=== PATIENT | female | born 1965 | race Caucasian/White ===

== ENCOUNTER 2019-07-19 13:48 | Emergency (ER) | payer BC ==
[2019-07-19] MEDS ORDERED: Morphine 4 MG/ML Syringe IVPUSH ONE ×2 (13:58→16:03)
[2019-07-19] MEDS ORDERED: Ondansetron 4 MG/2 ML SDV IVPUSH PRN (13:58)
[2019-07-19] MEDS ORDERED: Sodium Chloride 0.9% 10 ML Syringe FLUSH PRN (13:58)
[2019-07-19] MEDS ORDERED: Ketorolac 30 MG/ML SDV IVPUSH ONE (14:00)
[2019-07-19] MEDS ORDERED: Sodium Chloride 0.9% 1,000 ML IV ONE (14:00)
--- NOTE | 2019-07-19 14:06 | EDM.PDOC ---
ED HPI GENERAL MEDICAL PROBLEM - General Chief Complaint: Abdominal Pain Stated Complaint: ABDOMINAL PAIN Time Seen by Provider: 07/19/19 13:51 Source of Information: Reports: Patient - History of Present Illness INITIAL COMMENTS - FREE TEXT/NARRATIVE: Trudy is a 54 y/o female who comes to the ER with RLQ abdominal pain that she reports started yesterday and has gotten worse. The pain is sharp and constant and she rates it 10/10 and worse with any movement. Denies fever. She is a bit nauseated, but has not vomited. Several soft stools today. She reports to [facility] that she had had her appendix out. Right Lower Abdomen Pain Score (Numeric/FACES): 7 - Related Data Allergies Allergy/AdvReac Type Severity Reaction Status Date / Time chlorzoxazone [From Paraflex] Allergy Other Verified 07/19/19 13:57 Home Meds: Home Meds Ciprofloxacin [Cipro] 500 mg PO BID 10 Days #20 ml 07/19/19 [Rx] Escitalopram Oxalate 20 mg PO DAILY 07/19/19 [History] Lisinopril/Hydrochlorothiazide [Lisinopril-Hctz 20-25 mg Tab] 1 each PO DAILY [History] Ondansetron [Ondansetron ODT] 4 mg PO Q6H PRN #15 tab.rapdis 07/19/19 [Rx] metroNIDAZOLE [Flagyl] 500 mg PO Q8H 10 Days #30 tab 07/19/19 [Rx] oxyCODONE HCl/Acetaminophen [Oxycodone-Acetaminophen 5-325] 1 - 2 each PO Q4HR 3 Days #30 tablet 07/19/19 [Rx] traZODone HCl [Trazodone HCl] 50 mg PO DAILY 07/19/19 [History] Past Medical History Cardiovascular History: Reports: Hypertension Other Gastrointestinal History: S/P Appendectomy 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: Other (See Below) (Ovarian Cyst; S/P Hysterectomy) Psychiatric History: Reports: Anxiety, Depression Social & Family History - Alcohol Use Alcohol Use History: Yes Review of Systems - Review of Systems Review Of Systems: See Below Constitutional: Reports: No Symptoms Eyes: Reports: No Symptoms Ears: Reports: No Symptoms Nose: Reports: No Symptoms Mouth/Throat: Reports: No Symptoms Respiratory: Reports: No Symptoms Cardiovascular: Reports: No Symptoms GI/Abdominal: Reports: Abdominal Pain, Decreased Appetite, Nausea Genitourinary: Reports: Dysuria (mild urgency last 24 hours) Musculoskeletal: Reports: No Symptoms Skin: Reports: No Symptoms Neurological: Reports: No Symptoms Psychiatric: Reports: No Symptoms ED EXAM, GENERAL - Physical Exam Exam: See Below Exam Limited By: No Limitations General Appearance: Alert, WD/WN, No Apparent Distress, Other (Adult female, lying on her side on the ER cart, obviously in pain) Ears: Hearing Grossly Normal Nose: Normal Inspection, No Blood Throat/Mouth: Normal Inspection, Normal Lips, Normal Teeth, Normal Voice Head: Atraumatic, Normocephalic Neck: Normal Inspection, Other Respiratory/Chest: Lungs Clear, Normal Breath Sounds, Chest Non-Tender Cardiovascular: Normal Peripheral Pulses, Regular Rate, Rhythm, No JVD GI/Abdominal: Normal Bowel Sounds, Soft, Tender (RLQ) (Female) Exam: Deferred Rectal (Female) Exam: Deferred Back Exam: Normal Inspection. No: CVA Tenderness (L), CVA Tenderness (R) Extremities: Normal Inspection, Non-Tender, Normal Capillary Refill Neurological: Alert, Oriented, CN II-XII Intact, Normal Cognition, No Motor/ Sensory Deficits Psychiatric: Normal Affect, Normal Mood Skin Exam: Warm, Dry, Intact, Normal Color, No Rash Lymphatic: No Adenopathy Course - Vital Signs Text/Narrative:: The patient was seen by the REPORT SPECIALIST on arrival to the ER. Labs and CT ordered. Also a liter of NS, Morphone 4mg IVP, Toradol 30mg IVP, and Zofran 4 mg IVP ordered. 1455 Patient feeling better., decreased pain. Radiologist calls REPORT SPECIALIST with CT report. 1600 Remaining labs pending yet in lab. CT sent to [facility] for surgeon to review. Patient reports that her pain is starting to return. Morphine 4mg IVP ordered. 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 Case presented to ER physician for review. Will attempt to treat patient as on outpatient with Cipro/Flagyl and pain meds and antiemetics. Patient reluctant to be admitted and wants to try outpatient treatment first. Patient was given discharge instructions and left the ER in stable condition. Last Recorded V/S: Last Vital Signs Temp 35.6 C L 07/19/19 13:49 Pulse 90 07/19/19 16:16 Resp 14 07/19/19 16:16 BP 107/67 07/19/19 16:16 Pulse Ox 95 07/19/19 16:16 - Orders/Labs/Meds Orders: Active Orders 24 hr Category Date Time Status Pulse Oximetry [RC] CONTINUOUS Care 07/19/19 13:58 Active Nothing per Oral Now Diet [DIET] Diet 07/19/19 Dinner Active Ondansetron [Zofran] Med 07/19/19 13:58 Active 4 mg IVPUSH ONETIME PRN Sodium Chloride 0.9% [Saline Flush] Med 07/19/19 13:58 Active 10 ml FLUSH ASDIRECTED PRN ED Antiemetic Medication Reflex [OM.PC] Stat Ot 07/19/19 13:58 Ordered ED GI Medications Reflex [OM.PC] Stat Ot 07/19/19 13:58 Ordered ED Pain Medications Reflex [OM.PC] Stat Ot 07/19/19 13:58 Ordered Peripheral IV Insertion Adult [OM.PC] Stat Oth 07/19/19 13:58 Ordered Saline Lock Insert [OM.PC] Stat Oth 07/19/19 13:58 Ordered Saline Lock Insert [OM.PC] Stat Ot 07/19/19 13:58 Ordered Medication Orders Ondansetron HCl (Zofran) 4 mg IVPUSH ONETIME PRN PRN Reason: Nausea/Vomiting Last Admin: 07/19/19 14:10 Dose: 4 mg Sodium Chloride (Saline Flush) 10 ml FLUSH ASDIRECTED PRN PRN Reason: Keep Vein Open Labs: Laboratory Tests 07/19/19 07/19/19 07/19/19 Range/Units 14:09 14:09 16:11 WBC 19.3 H (4.0-10.0) x10^3/uL RBC 5.61 H (4.00-5.50) x10^6/uL Hgb 16.6 H (12.0-16.0) g/dL Hct 50.4 H (33.0-47.0) % MCV 89.8 (78.0-93.0) fL MCH 29.6 (26.0-32.0) pg MCHC 32.9 (32.0-36.0) g/dL RDW Coeff of Corby 13.0 (10.0-15.0) % Plt Count 270 (130-400) x10^3/uL Neut % (Auto) 80.3 H (50.0-80.0) % Lymph % (Auto) 11.8 L (25.0-50.0) % Gillespie % (Auto) 6.8 (2.0-11.0) % Eos % (Auto) 0.9 (0.0-4.0) % Baso % (Auto) 0.2 (0.2-1.2) % Sodium 136 (136-145) mmol/L Potassium 3.6 (3.5-5.1) mmol/L Chloride 94 L (98-107) mmol/L Carbon Dioxide 25 (21-32) mmol/L Anion Gap 20.6 H (10-20) mmol/L BUN 11 (7-18) mg/dL Creatinine 1.0 (0.55-1.02) mg/dL Est Cr Clr Drug Dosing TNP Estimated GFR (MDRD) 57 Glucose 98 (74-106) mg/dL Calcium 8.9 (8.5-10.1) mg/dL Corrected Calcium 9.06 (8.5-10.1) mg/dL Total Bilirubin 0.7 (0.2-1.0) mg/dL AST 46 H (15-37) U/L ALT 78 H (14-59) U/L Alkaline Phosphatase 169 H (46-116) U/L Total Protein 8.0 (6.4-8.2) g/dL Albumin 3.8 (3.4-5.0) g/dL Globulin 4.2 Albumin/Globulin Ratio 0.90 Urine Color Yellow (YELLOW) Urine Appearance Slightly cloudy H (CLEAR) Urine pH 5.5 (5.0-8.0) Ur Specific [place] 1.015 Urine Protein Negative (NEGATIVE) mg/dL Urine Glucose (UA) Negative (NEGATIVE) mg/dL Urine Ketones Negative (NEGATIVE) mg/dL Urine Occult Blood Small H (NEGATIVE) Urine Nitrite Negative (NEGATIVE) Urine Bilirubin Negative (NEGATIVE) Urine Urobilinogen 0.2 (0.2) EU/dL Ur Leukocyte Esterase Moderate H (NEGATIVE) Urine RBC 10-20 H (NOT SEEN) /HPF Urine WBC 30-40 H (NOT SEEN) /HPF Ur Squamous Epith Cells Few H (NEGATIVE) /HPF Urine Bacteria Occasional H (NEGATIVE) /HPF Urine Mucus Few H (NEGATIVE) /LPF Meds: Medications Generic Name Dose Route Start Last Admin Trade Name Babak PRN Reason Stop Dose Admin Ondansetron HCl 4 mg 07/19/19 13:58 07/19/19 14:10 Zofran IVPUSH 4 mg ONETIME PRN Administration Nausea/Vomiting Sodium Chloride 10 ml 07/19/19 13:58 Saline Flush FLUSH ASDIRECTED PRN Keep Vein Open Discontinued Medications Generic Name Dose Route Start Last Admin Trade Name Babak PRN Reason Stop Dose Admin Sodium Chloride 1,000 mls @ 999 mls/hr 07/19/19 14:00 07/19/19 14:10 Normal Saline IV 07/19/19 15:00 999 mls/hr ONETIME ONE Administration Ketorolac Tromethamine 30 mg 07/19/19 14:00 07/19/19 14:14 Toradol IVPUSH 07/19/19 14:01 30 mg ONETIME ONE Administration Morphine Sulfate 4 mg 07/19/19 13:58 07/19/19 14:16 Morphine IVPUSH 07/19/19 13:59 4 mg ONETIME ONE Administration Morphine Sulfate 4 mg 07/19/19 16:03 07/19/19 16:12 Morphine IVPUSH 07/19/19 16:04 4 mg ONETIME ONE Administration Departure - Departure Time of Disposition: 17:13 Disposition: Home, Self-Care 01 Condition: Good Clinical Impression: Colitis - Discharge Information *PRESCRIPTION DRUG MONITORING PROGRAM REVIEWED*: No *COPY OF PRESCRIPTION DRUG MONITORING REPORT IN PATIENT BALDO: No Prescriptions: oxyCODONE HCl/Acetaminophen [Oxycodone-Acetaminophen 5-325] 1 - 2 each PO Q4HR 3 Days #30 tablet Ciprofloxacin [Cipro] 500 mg PO BID 10 Days #20 ml metroNIDAZOLE [Flagyl] 500 mg PO Q8H 10 Days #30 tab Ondansetron [Ondansetron ODT] 4 mg PO Q6H PRN #15 tab.rapdis PRN Reason: Nausea Instructions: Colitis Referrals: Beau Saldivar NP [Nurse Practitioner] - Forms: ED Department Discharge, ED Return to Work/School Form Additional Instructions: -Cipro 500mg oral twice daily x 10 days #20(Rx) -Flagyl 500mg oral three times daily x 10 days #30(Rx) -Oxycodone/APAP 5/325mg 1-2 tablets oral every 4 hours as needed for pain #30 ( RX) -Ondanestron ODT 4 mg oral every 4 hours as needed for nausea #15(Rx) -Rest -Clear liquids and advance your diet slowly -Return to the ER if you are unable to manage symptoms at home or see your PCP -Follow up with your PCP in 10 days for a recheck -No work the rest of the week. Note written. Sepsis Event Note - Evaluation Sepsis Screening Result: No Definite Risk - Focused Exam Vital Signs: Vital Signs Temp Pulse Resp BP Pulse Ox 07/19/19 16:16 90 14 107/67 95 07/19/19 13:49 35.6 C L 109 H 16 142/86 H 94 L Date Exam was Performed: 07/19/19 Time Exam was Performed: 16:57 - My Orders Last 24 Hours: My Active Orders 07/19/19 13:58 Pulse Oximetry [RC] CONTINUOUS Ondansetron [Zofran] 4 mg IVPUSH ONETIME PRN Sodium Chloride 0.9% [Saline Flush] 10 ml FLUSH ASDIRECTED PRN ED Antiemetic Medication Reflex [OM.PC] Stat ED GI Medications Reflex [OM.PC] Stat ED Pain Medications Reflex [OM.PC] Stat Peripheral IV Insertion Adult [OM.PC] Stat Saline Lock Insert [OM.PC] Stat Saline Lock Insert [OM.PC] Stat 07/19/19 Dinner Nothing per Oral Now Diet [DIET] - Assessment/Plan Last 24 Hours: My Active Orders 07/19/19 13:58 Pulse Oximetry [RC] CONTINUOUS Ondansetron [Zofran] 4 mg IVPUSH ONETIME PRN Sodium Chloride 0.9% [Saline Flush] 10 ml FLUSH ASDIRECTED PRN ED Antiemetic Medication Reflex [OM.PC] Stat ED GI Medications Reflex [OM.PC] Stat ED Pain Medications Reflex [OM.PC] Stat Peripheral IV Insertion Adult [OM.PC] Stat Saline Lock Insert [OM.PC] Stat Saline Lock Insert [OM.PC] Stat 07/19/19 Dinner Nothing per Oral Now Diet [DIET]
--- NOTE | 2019-07-19 14:58 | CT ---
[id number] CT/CT Abdomen Pelvis WO IV Exam: CT Abdomen Pelvis WO IV Clinical Data: RIGHT LOWER QUADRANT PAIN COMPARISON: NO PREVIOUS SIMILAR EXAM IS AVAILABLE FINDINGS: The exam is not normal There is abnormal thickening of the wall of the right side of the large bowel The exact surgical history is needed. The appendix is not seen IV contrast is not used There are no calculi of either kidney or ureter There is no hydronephrosis The remainder of the exam is unremarkable The liver and spleen, adrenals, aorta, and pelvis show no abnormalities The gallbladder is mildly distended The gallbladder wall is normal The uterus and ovaries also are not seen IMPRESSION: ABNORMAL THICKENING OF WALL OF THE RIGHT SIDE OF LARGE BOWEL CONSIDER SURGICAL OPINION COLITIS IS A STRONG CONSIDERATION Ron Collins MD 07/19/19 [id number] Thank you for allowing us to participate in the care of your patient.
[2019-07-19 16:41] LABS: ANION GAP 20.6 mmol/L (10-20); CHLORIDE,CL 94 mmol/L (98-107); SODIUM,NA 136 mmol/L (136-145)
== END 2019-07-19 17:32 | disposition home or self-care (01) ==
LOC: VM.ED 13:48
DX: K52.9 Noninfective gastroenteritis and colitis, unspecified (principal); I10 Essential (primary) hypertension; F41.9 Anxiety disorder, unspecified; F32.9 Major depressive disorder, single episode, unspecified; Z88.8 Allergy status to other drugs, medicaments and biological substances; Z79.899 Other long term (current) drug therapy
CPT/HCPCS: 36415; 74176; 80053; 81001; 85025; 96361; 96374; 96375; 96376; 99284-25; J1885; J2270; J2405; J7030